=== PATIENT | female | born 1975 | race Caucasian/White ===

== ENCOUNTER 2017-06-27 21:32 | Emergency (ER) | payer SELFPAY ==
[~2017-06-27] VITALS: Ht 157.5 cm; Wt 102.0 kg
[~2017-06-27 21:32] MED LIST: BACT2OIN TOP; LISI2.5T3 PO; SULF1TAB47 PO
[2017-06-27 21:34] VITALS: BP 198/106; PULSE 114; RESP 16; TEMP 98.7; O2SAT 99
[2017-06-27] MEDS ORDERED: ZITHTAB PO (22:11)
[2017-06-27] MEDS ORDERED: LISI-515 PO (22:11)
[2017-06-27] MEDS ORDERED: PHENERGAN W CODEIN PO (22:11)
--- NOTE | 2017-06-27 22:11 | PD ---
HPI Chief Complaint: Cold / Flu Symptoms Time Seen by Provider: 21:58 Travel History International Travel<30 days: No Contact w/Intl Traveler<30days: No Traveled to known affect area: No History of Present Illness HPI 42-year-old female complains of headache, sore throat, earache, coughing congestion nausea vomiting diarrhea. Patient states that the coughing congestion started 4 days ago. Patient stated that she had vomiting and diarrhea last night. Patient states that she had chest wall pain with coughing. Patient denies any dysuria or frequency. Patient denies any vaginal discharge or bleeding. Patient denies any fever chills. PFSH Past Medical History Heart Rhythm Problems: No Cancer: No Cardiac Catheterization: No Cardiovascular Problems: No High Cholesterol: No Congestive Heart Failure: No Diabetes: No Endocrine: No Genitourinary: No Immune Disorder: No Musculoskeletal: No Neurologic: No Psychiatric: No Reproductive: No Respiratory: No Migraines: Yes Myocardial Infarction: No Tetanus Vaccination: < 5 Years Influenza Vaccination: No ?: Not LMP: menapause : 4 Para: 2 Miscarriage: 2 Past Surgical History Surgical History: No Previous Surgery Body Medical Devices: MURMUR Coronary Artery Bypass Graft: No Family History Family Myocardial Infarction: Yes (MOTHER ME AT 61Y/O AUGUST 2005) Social History Alcohol Use: No Tobacco Use: No Substance Use: No Allergies-Medications (Allergen,Severity, Reaction): Coded Allergies: adhesive (Unverified Allergy, Severe, RASH, 06/27/17) VENIGAURD cephalexin (Unverified Allergy, Severe, SOB, 06/27/17) penicillin G (Unverified Allergy, Severe, SOB, 06/27/17) Reported Meds & Prescriptions Reported Meds & Active Scripts Active Bactrim Ds (Trimethoprim/Sulfamethoxazole) Tab 1 Tab PO BID Bactroban (Mupirocin) 22 Gm Oint 2 % TOP BID 7 Days APPLY TO AFFECTED AREAS Reported Prinivil (Lisinopril) 2.5 Mg Tab 2.5 Mg PO DAILY Review of Systems General / Constitutional: No: Fever Eyes: No: Visual changes HENT: Positive: Headaches Cardiovascular: Positive: Chest Pain or Discomfort (headache) Respiratory: Positive: Cough ( chest pain coughing), No: Shortness of Breath Gastrointestinal: Positive: Nausea, Vomiting, Diarrhea (NAUSEA VOMITING), No: Abdominal Pain Genitourinary: No: Dysuria Musculoskeletal: No: Pain Skin: No Rash Neurologic: No: Weakness Psychiatric: No: Depression Endocrine: No: Polydipsia Hematologic/Lymphatic: No: Easy Bruising Physical Exam Narrative GENERAL: Well-nourished, well-developed patient. SKIN: Focused skin assessment warm/dry. HEAD: Normocephalic. EYES: No scleral icterus. No injection or drainage. TM: Clear. Throat: Mild erythematous. NECK: Supple, trachea midline. No JVD or lymphadenopathy. No meningismus CARDIOVASCULAR: Regular rate and rhythm without murmurs, gallops, or rubs. RESPIRATORY: Breath sounds equal bilaterally. No accessory muscle use. GASTROINTESTINAL: Abdomen soft, non-tender, nondistended. MUSCULOSKELETAL: No cyanosis, or edema. BACK: Nontender without obvious deformity. No CVA tenderness. Data Data Last Documented VS Vital Signs Date Time Temp Pulse Resp B/P (MAP) Pulse Ox O2 Delivery O2 Flow Rate FiO2 06/27/17 21:34 98.7 114 16 198/106 (136) 99 Room Air MDM Medical Decision Making Medical Screen Exam Complete: Yes Emergency Medical Condition: Yes Differential Diagnosis Differential diagnosis including viral syndrome, otitis media, pharyngitis, bronchitis, pneumonia, gastroenteritis. Narrative Course 42-year-old female with headache, sore throat, earache, coughing congestion, nausea vomiting diarrhea. Diagnosis Primary Impression: Bronchitis Additional Impression: Viral syndrome Patient Instructions: General Instructions Additional Instructions: Z-Leodan as directed. Tylenol or ibuprofen for aching pain. Follow-up with personal physician. Return if worse. Med/Other Pt SpecificInfo: Prescription(s) given Scripts [Phenergan W Codein] No Conflict Check 10 ML PO Q8HR for Cough, #120 Prov: Drew Beasley MD 06/27/17 Azithromycin (Zithromax Z-Leodan) 250 Mg Dspk 250 MG PO DIRECTED for Infection, #1 DSPK 0 Refills 500 MG (2 tabs) day 1, then 1 tab days 2-5. Prov: Drew Beasley MD 06/27/17 Lisinopril (Lisinopril) 20 Mg Tab 20 MG PO DAILY, #30 TAB 0 Refills Prov: Drew Beasley MD 06/27/17 Disposition: 01 DISCHARGE HOME Condition: Stable Drew Beasley MD Jun 27, 2017 22:11
== END 2017-06-27 22:46 | disposition home or self-care (01) ==
LOC: NEPD 21:32
DX: J40 Bronchitis, not specified as acute or chronic (principal); B34.9 Viral infection, unspecified
CPT/HCPCS: 99283